=== PATIENT | female | born 1995 | race African-American/Black ===

== ENCOUNTER 2018-05-17 20:54 | Outpatient (CLI) | payer OTHER, MEDICAID ==
[2018-05-17 22:24] LABS: ADD UMIC YES; UR ASCORBIC ACID 40 mg/dL (NEGATIVE); UR BILIRUBIN (Dip) NEGATIVE (NEGATIVE); UR BLOOD (Dip) NEGATIVE (NEGATIVE); UR CLARITY CLEAR (CLEAR); UR COLOR YELLOW (YELLOW); UR GLUCOSE (Dip) NEGATIVE (NEGATIVE); UR KETONES (Dip) NEGATIVE (NEGATIVE); UR LEUKOCYTE ESTERASE (Dip) 1+ Leu/ul (NEGATIVE); UR MUCUS FEW /HPF (NONE SEEN); UR NITRITE (Dip) NEGATIVE (NEGATIVE); UR RBC 0 /HPF (0-5); UR SPECIFIC GRAVITY (Dip) 1.018 (1.003-1.030); UR SQUAMOUS EPITHELIAL CELL FEW /HPF (FEW); UR TOTAL PROTEIN (Dip) NEGATIVE (NEGATIVE); UR UROBILINOGEN (Dip) 1+ mg/dL (NEGATIVE); UR WBC 3 /HPF (0-5)
[2018-05-17 22:36] LABS: AMPHETAMINE/METHAMPHETAMINE Negative (NEGATIVE); BARBITURATES Negative (NEGATIVE); BENZODIAZEPINES Negative (NEGATIVE); CANNABINOIDS Positive (NEGATIVE); COCAINE Negative (NEGATIVE); OPIATES Negative (NEGATIVE)
[2018-05-18 00:18] LABS: RUPTURE FETAL MEMBRANES NEGATIVE (NEGATIVE)
== END 2018-05-18 01:15 | disposition home or self-care (01) ==
LOC: OBT 20:54 → L-D 20:55
DX: O62.9 Abnormality of forces of labor, unspecified (principal); Z3A.36 36 weeks gestation of pregnancy
CPT/HCPCS: 76815; 76818; 80307; 81001; 84112

== ENCOUNTER 2018-06-18 04:00 | Inpatient (IN) | payer OTHER ==
[2018-06-18] MEDS: LACTATED RINGER'S 1,000 ML IV* ×3 (04:49→08:21)
[2018-06-18] MEDS ORDERED: OXYTOCIN 30 UNITS/LR 500 ML IV (05:30)
[2018-06-18] MEDS ORDERED: MISOPROSTOL 200 MCG TAB PR ×2 (05:30→12:00)
[2018-06-18] MEDS ORDERED: BUTORPHANOL 2 MG INJ IV (05:30)
[2018-06-18] MEDS ORDERED: IBUPROFEN 600 MG TAB PO (05:30)
[2018-06-18] MEDS ORDERED: CARBOPROST 250 MCG INJ IM ×2 (05:30→12:00)
[2018-06-18] MEDS ORDERED: BUTORPHANOL 1 MG INJ IV (05:30)
[2018-06-18] MEDS ORDERED: LIDOCAINE 1% (MPF) 30 ML INJ INJ (05:30)
[2018-06-18] MEDS ORDERED: METHYLERGONOVINE 0.2 MG INJ IM ×2 (05:30→12:00)
[2018-06-18] MEDS: AMPICILLIN 2 GM/NS (PMX) 100 ML IV (05:42)
[2018-06-18] MEDS ORDERED: FENTAnyl 2MCG/ML-ROPIV 0.2% 100 ML (06:26)
[2018-06-18 06:32] LABS: ADD MAN DIFF? NO
[2018-06-18 06:40] LABS: BASOPHILS % 0.2 % (0.0-2.0); EOSINOPHILS % 0.2 % (0.0-7.0); HEMATOCRIT 36.4 % (37.0-47.0); HEMOGLOBIN 11.4 g/dl (12.0-16.0); LYMPHOCYTES # 3.3 10^3/ul (0.8-2.9); LYMPHOCYTES % 23.9 % (15.0-51.0); MEAN CORPUSCULAR HEMOGLOBIN 23.1 pg (29.0-33.0); MEAN CORPUSCULAR HGB CONC 31.3 g/dl (32.0-37.0); MEAN CORPUSCULAR VOLUME 73.8 fl (82.0-101.0); MONOCYTE # 0.7 10^3/ul (0.3-0.9); MONOCYTES % 5.3 % (0.0-11.0); NEUTROPHIL # 9.6 10^3/ul (1.6-7.5); NEUTROPHILS % 69.7 % (39.0-77.0); PLATELET COUNT 243 10^3/UL (140-415); RED BLOOD COUNT 4.93 10^6/ul (4.20-5.40); RED CELL DISTRIBUTION WIDTH 14.5 % (11.5-14.5)
[2018-06-18 06:40] LABS: WHITE BLOOD COUNT 13.8 10^3/ul (4.8-10.8)
[2018-06-18 06:54] LABS: INR 0.86; PROTIME 11.8 Sec (11.9-14.9); PT RATIO 0.9
[2018-06-18 06:55] LABS: PARTIAL THROMBOPLASTIN TIME 25.7 Sec (25.0-35.0)
[2018-06-18] MEDS ORDERED: ONDANSETRON 4 MG INJ IV (07:00)
[2018-06-18] MEDS ORDERED: NALOXONE (0.4 MG/ML) INJ IV (07:00)
[2018-06-18] MEDS ORDERED: HYDROmorphONE 0.5 MG/0.5 ML SYG IV ×2 (07:00)
[2018-06-18] MEDS ORDERED: KETOROLAC 30 MG INJ IV (07:00)
[2018-06-18] MEDS ORDERED: DIPHENHYDRAMINE 50 MG INJ IV (07:00)
[2018-06-18] MEDS ORDERED: FENTAnyl 2MCG/ML-ROPIV 0.2% 100 ML BAG EPI (07:00)
[2018-06-18 07:01] LABS: ALANINE AMINOTRANSFERASE 27 IU/L (13-69); ALBUMIN/GLOBULIN RATIO 0.88; ALKALINE PHOSPHATASE 145 IU/L (42-121); ANION GAP 12 (8-16); ASPARTATE AMINO TRANSFERASE 23 IU/L (15-46); BILIRUBIN,INDIRECT 0.2 mg/dl (0-1.1); BILIRUBIN,TOTAL 0.2 mg/dl (0.2-1.3); BLOOD UREA NITROGEN 9 mg/dl (7-20); CALCIUM 8.7 mg/dl (8.4-10.2); CARBON DIOXIDE 24 mmol/L (21-31); CHLORIDE 106 mmol/L (97-110); CREATININE 0.48 mg/dl (0.44-1.00); GLUCOSE 85 mg/dl (70-220); POTASSIUM 3.8 mmol/L (3.5-5.1); SODIUM 138 mmol/L (135-144); TOTAL PROTEIN 6.4 g/dl (6.1-8.1)
[2018-06-18 07:31] LABS: HEPATITIS B SURFACE ANTIGEN NEGATIVE (NEGATIVE)
[2018-06-18 07:42] LABS: HIV 1&2 ANTIBODY NEGATIVE (NEGATIVE)
[2018-06-18] MEDS: AMPICILLIN 1 GM/NS (PMX) 50 ML IV (09:26)
[2018-06-18 09:45] LABS: ADD UMIC NO; UR ASCORBIC ACID NEGATIVE (NEGATIVE); UR BILIRUBIN (Dip) NEGATIVE (NEGATIVE); UR BLOOD (Dip) NEGATIVE (NEGATIVE); UR CLARITY CLEAR (CLEAR); UR COLOR YELLOW (YELLOW); UR GLUCOSE (Dip) NEGATIVE (NEGATIVE); UR KETONES (Dip) NEGATIVE (NEGATIVE); UR LEUKOCYTE ESTERASE (Dip) NEGATIVE Leu/ul (NEGATIVE); UR NITRITE (Dip) NEGATIVE (NEGATIVE); UR SPECIFIC GRAVITY (Dip) 1.024 (1.003-1.030); UR TOTAL PROTEIN (Dip) NEGATIVE (NEGATIVE); UR UROBILINOGEN (Dip) NEGATIVE (NEGATIVE)
[2018-06-18] MEDS: OXYTOCIN 30 UNITS/LR 500 ML IV ×3 (10:27→15:27)
[2018-06-18] MEDS ORDERED: ZOLPIDEM 5 MG TAB PO (12:00)
[2018-06-18] MEDS ORDERED: OXYCODONE/ASPIRIN (4.88/325) TAB PO ×2 (12:00)
[2018-06-18] MEDS: IBUPROFEN 600 MG TAB PO ×3 (12:00→23:29)
[2018-06-18] MEDS: BENZOCAINE 20% 56 ML SPRAY TOP (14:34)
[2018-06-18] MEDS: WITCH HAZEL/GLYCERIN PAD PR (14:34)
[2018-06-18] MEDS: LANOLIN 7 GM TUBE TOP (14:35)
[2018-06-18 16:10] LABS: RAPID PLASMA REAGIN NONREACTIVE (NR)
[2018-06-18 16:35] LABS: AMPHETAMINE/METHAMPHETAMINE Negative (NEGATIVE); BARBITURATES Negative (NEGATIVE); BENZODIAZEPINES Negative (NEGATIVE); CANNABINOIDS Negative (NEGATIVE); COCAINE Negative (NEGATIVE); OPIATES Negative (NEGATIVE)
[2018-06-18] MEDS: SENNA/DOCUSATE NA (8.6MG/50MG) TAB PO (21:01)
[2018-06-19] MEDS: IBUPROFEN 600 MG TAB PO ×3 (05:28→17:59)
[2018-06-19 07:26] LABS: RUBELLA ANTIBODY - IGG <0.90 index
[2018-06-19] MEDS: SENNA/DOCUSATE NA (8.6MG/50MG) TAB PO ×2 (09:22→21:02)
[2018-06-19 09:42] LABS: ADD MAN DIFF? NO
[2018-06-19 09:53] LABS: BASOPHIL # 0.1 10^3/ul (0.0-0.1); BASOPHILS % 0.4 % (0.0-2.0); EOSINOPHILS # 0.1 10^3/ul (0.0-0.5); EOSINOPHILS % 0.6 % (0.0-7.0); HEMATOCRIT 34.7 % (37.0-47.0); HEMOGLOBIN 10.8 g/dl (12.0-16.0); LYMPHOCYTES # 4.3 10^3/ul (0.8-2.9); LYMPHOCYTES % 32.3 % (15.0-51.0); MEAN CORPUSCULAR HEMOGLOBIN 22.8 pg (29.0-33.0); MEAN CORPUSCULAR HGB CONC 31.1 g/dl (32.0-37.0); MEAN CORPUSCULAR VOLUME 73.4 fl (82.0-101.0); MEAN PLATELET VOLUME 11.7 fl (7.4-10.4); MONOCYTE # 0.6 10^3/ul (0.3-0.9); MONOCYTES % 4.5 % (0.0-11.0); NEUTROPHIL # 8.1 10^3/ul (1.6-7.5); NEUTROPHILS % 61.6 % (39.0-77.0); PLATELET COUNT 249 10^3/UL (140-415); RED BLOOD COUNT 4.73 10^6/ul (4.20-5.40); RED CELL DISTRIBUTION WIDTH 14.4 % (11.5-14.5)
[2018-06-19 09:53] LABS: WHITE BLOOD COUNT 13.2 10^3/ul (4.8-10.8)
[2018-06-19 12:41] LABS: RUBELLA ANTIBODY - IGM <20.00 AU/mL
[2018-06-20] MEDS: IBUPROFEN 600 MG TAB PO ×3 (00:16→11:16)
[2018-06-20] MEDS: SENNA/DOCUSATE NA (8.6MG/50MG) TAB PO (09:00)
[2018-06-20] MEDS: DIPHTH/TET/ACEL PERTUSS (ADULT) 0.5 ML VIAL IM* (09:00)
== END 2018-06-20 19:00 | disposition home or self-care (01) | DRG 775 ==
LOC: OBT 04:00 → L-D 04:00 → OBT 04:20 → L-D 04:20 → PP1 11:59
PROC: 10E0XZZ Delivery of Products of Conception, External Approach (ICD-10-PCS; principal; 2018-06-18)
PROC: 3E033VJ Introduction of Other Hormone into Peripheral Vein, Percutaneous Approach (ICD-10-PCS; 2018-06-18)
DX: O48.0 Post-term pregnancy (principal); O99.324 Drug use complicating childbirth; Z3A.40 40 weeks gestation of pregnancy; F12.90 Cannabis use, unspecified, uncomplicated; Z37.0 Single live birth
CPT/HCPCS: 36415; 62319; 76815; 80053; 80307; 81003; 85025; 85610; 85730; 86592; 86703; 86762; 86850; 86900; 86901; 87340